=== PATIENT | male | born 1985 | race American Indian/Alaskan Native ===

== ENCOUNTER 2019-11-24 13:52 | Emergency (ER) | payer SELFPAY | END 2019-11-24 17:47 | disposition left against medical advice (07) | LOC: ED 13:52 | DX: M79.621 Pain in right upper arm (principal); Z53.21 Procedure and treatment not carried out due to patient leaving prior to being seen by health care provider ==

== ENCOUNTER 2019-11-25 08:55 | Emergency (ER) | payer SELFPAY ==
[2019-11-25 09:03] VITALS: BP 125/83
--- NOTE | 2019-11-25 10:45 | Emergency Department Report ---
Chief Complaint: Medical Clearance Stated Complaint: HERPES OUTBREAK Time Seen by Provider: 11/25/19 10:22 - HPI History of Present Illness: This is a 34-year-old male nontoxic, well nourished in appearance, no acute signs of distress presents to the ED with c/o of herpes labialis. Patient penile lesions, testicular pain or swelling. Patient denies any other complaints. Denies any fever, chills, nausea, vomiting, headache, stiff neck, numbness or tingling. Patient denies any allergies or significant past medical history. - Exam Vital Signs: Vital Signs 11/25/19 08:59 Temperature 98.5 F Pulse Rate 82 Respiratory 18 Rate Blood Pressure 125/83 O2 Sat by Pulse 100 Oximetry Physical Exam: Lower lip slight culture noted. No penile lesions has been noted upon exam. No rmal testicular exam. Otherwise unremarkable physical exam. MSE screening note: Focused history and physical exam performed. Due to findings the following was ordered: ED Medical Decision Making - Medical Decision Making This is a 34-year-old male that presents with nonmedical emergency. Patient is stable and was examined by me. PAtient was educated on OTC remedies and treatment. I will refer the patient primary care doctor and [facility] and health Department. At time of discharge, the patient does not seem toxic or ill in appearance. No acute signs of distress noted. Patient agrees to discharge treatment plan of care. No further questions noted by the patient. ED Disposition for MSE Clinical Impression: Herpes labialis Disposition: Z-07 MED SCREENING EXAM-LEFT Is pt being admited?: No Does the pt Need Aspirin: No Condition: Stable Additional Instructions: Follow-up with a primary care doctor in 3-5 days or if symptoms worsen and continue return to emergency room as soon as possible. Referrals: LITTLE CORDOVA MD [Primary Care Provider] - 3-5 Days PAKO BRADLEY MD [Staff Physician] - 3-5 Days [facility] [Provider Group] - 3-5 Days
== END 2019-11-25 10:59 | disposition left against medical advice (07) ==
LOC: ED 08:55
DX: B00.1 Herpesviral vesicular dermatitis (principal)
CPT/HCPCS: 99281

== ENCOUNTER 2020-11-02 10:32 | Emergency (ER) | payer SELFPAY ==
[2020-11-02] MEDS ORDERED: SODIUM CHLORIDE 0.9% 1000 ML 1,000 ML IV ONE (10:35)
[2020-11-02] MEDS ORDERED: HYDROmorphone 1 MG/1 ML INJ IV ONE (10:35)
[2020-11-02] MEDS ORDERED: DIPHtheria,PERTUSSIS(ACELL),TETANUS VACCINE/PF 0.5 ML VIAL IM ONE (10:36)
[2020-11-02] MEDS ORDERED: ceFAZolin/NS 1 GM/50 ML 1 GM/50 ML BAG IV ONE (10:36)
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
[2020-11-02 10:43] VITALS: BP 126/78
[2020-11-02 11:53] LABS: Basophils # (Auto) 0.1 K/mm3 (0.0-0.1); Basophils % (Auto) 0.7 % (0.0-1.8); Eosinophils # (Auto) 0.1 K/mm3 (0.0-0.4); Hematocrit 44.4 % (35.5-45.6); Hemoglobin 14.8 gm/dl (11.8-15.2); Lymphocytes # (Auto) 2.6 K/mm3 (1.2-5.4); Lymphocytes % (Auto) 33.4 % (13.4-35.0); Mean Corpuscular HGB Conc 33 % (32-34); Mean Corpuscular Volume 91 fl (84-94); Monocytes # (Auto) 0.6 K/mm3 (0.0-0.8); Monocytes % (Auto) 7.2 % (0.0-7.3); Platelet Count 268 K/mm3 (140-440); Red Blood Count 4.88 M/mm3 (3.65-5.03); Red Cell Distribution Width 14.6 % (13.2-15.2)
[2020-11-02 11:57] LABS: BUN/Creatinine Ratio 23; Blood Urea Nitrogen 21 mg/dL (9-20); Calcium 9.3 mg/dL (8.4-10.2); Hemolysis Index 45
--- NOTE | 2020-11-02 12:47 | Cat Scan Report ---
CTA RIGHT UPPER EXTREMITY HISTORY: Trauma COMPARISON: None. TECHNIQUE: Routine postcontrast CT angiography of the right upper extremity performed. Multiplanar/CT P/3D reformats were post-processed. All CT scans at this location are performed using CT dose reducti on for ALARA by means of automated exposure control. CONTRAST: 100 ml of Omnipaque 350 FINDINGS: Subclavian Artery: Not included Axillary Artery: Not included Brachial Artery: No significant abnormality. Radial Artery: No significant abnormality. Ulnar Artery: No significant abnormality. NONTARGET STRUCTURES: Osseous Structures: Soft tissue injury/laceration is noted in the medial forearm. No foreign body or osseous injury is detected. Additional Findings: None IMPRESSION: No evidence for arterial injury. Soft tissue injury in the medial forearm. Signer Name: Darian Hill Jr, MD Signed: 11/02/2020 12:43 PM Workstation Name: [id number]
[2020-11-02] MEDS ORDERED: LIDOCAINE 2%/EPINEPHRINE 1:100,000 VIAL (20 ML) INFILTRATI ONE (13:39)
[2020-11-02] MEDS ORDERED: LIDOCAINE 1%/EPINEPHRINE 1:100,000 VIAL (20 ML) INFILTRATI NR (13:45)
[2020-11-02] MEDS ORDERED: SODIUM CHLORIDE IRRI 500 ML 500 ML IR ONE (13:56)
[2020-11-02] MEDS ORDERED: LIDOCAINE 0.5%/EPINEPHRINE 1:200,000 VIAL (50 ML) MDV INFILTRATI SCH (14:00)
== END 2020-11-02 15:40 | disposition home or self-care (01) ==
LOC: ED 10:32
DX: S51.811A Laceration without foreign body of right forearm, initial encounter (principal); Z79.899 Other long term (current) drug therapy; Z98.890 Other specified postprocedural states; W25.XXXA Contact with sharp glass, initial encounter; Y93.89 Activity, other specified; Y92.009 Unspecified place in unspecified non-institutional (private) residence as the place of occurrence of the external cause; Y99.8 Other external cause status
CPT/HCPCS: 12004; 36415; 73206; 80048; 85025; 86850; 86900; 86901; 90471; 90715; 96365; 96375; 99284; J0690; J1170; J7030; Q9967